=== PATIENT | male | born 1960 | race Caucasian/White ===

== ENCOUNTER → 2022-08-02 13:14 | Outpatient (BNVA) | payer OTHER, SELFPAY | PROVIDERS: Family Provider Family Medicine; PCP Family Medicine; Visit Provider Family Medicine | DX: Z00.00 Encounter for general adult medical examination without abnormal findings (principal); R91.1 Solitary pulmonary nodule | CPT/HCPCS: 80053; 80061; G0103 ==

== ENCOUNTER 2022-09-08 06:21 | Outpatient (CLI) | payer OTHER, SELFPAY ==
--- NOTE | 2022-09-08 06:30 | CT_ITS ---
WS: [id number] CT CHEST TECHNIQUE: Contrast enhanced CT of the chest with coronal and sagittal reformatted images. CLINICAL INFORMATION: hst of lung nodule COMPARISON: No comparisons available. DLP: 736.[address] scans at [facility] use at least one of these dose optimization techniques: automated e xposure control; mA and/or kV adjustment per patient size (includes targeted exams where dose is matc hed to clinical indication); or iterative reconstruction. FINDINGS: Both lungs are well aerated. No acute pulmonary infiltrates. No focal pneumonia or pleural fluid. No suspicious pulmonary parenchymal abnormalities. Normal caliber thoracic aorta. Mild aortic calcification. Coronary calcification. No axillary lymphad enopathy. No mediastinal or hilar lymphadenopathy. Adrenal glands are normal. Hypertrophic changes th oracic spine. Mild chronic appearing anterior wedging in the mid and upper thoracic spine with endpla te Schmorl's nodes. CT/CT chest w con* [id number] IMPRESSION: 1. No suspicious pulmonary parenchymal abnormalities. 2. No acute pulmonary infiltrates. 3. No mediastinal or hilar lymphadenopathy. 4. No other acute findings.
[2022-09-08] MEDS: iohexol 350 mg/mL 500 mL Btl (per mL) IV (06:32)
== END 2022-09-08 06:22 | disposition home or self-care (01) ==
LOC: RAD 06:21
PROVIDERS: Family Provider Family Medicine; PCP Family Medicine; Visit Provider Family Medicine
DX: R91.1 Solitary pulmonary nodule (principal)
CPT/HCPCS: 71260